=== PATIENT | male | born 1945 | race Caucasian/White ===

== ENCOUNTER 2018-09-02 07:35 | Emergency (ER) | payer MEDICARE, OTHER ==
[~2018-09-02] VITALS: Ht 177.8 cm; Wt 86.2 kg
--- OUTSIDE RECORDS SUMMARY | ~2018-09-02 | XMS | Clinical Summary ---
Demographics + + + | Address | [address] | | | [place] [address] | + + + | Home Phone | | + + + | Preferred Language | Unknown | + + + | Marital Status | | + + + | Anglican Affiliation | NON | + + + | Race | White | + + + | Ethnic Group | Unknown | + + + Author + + + | Organization | Unknown | + + + | Address | Unknown | + + + | Phone | Unavailable | + + + Care Team Providers + +------+ + | Care Research Support Specialist Name | Role | Phone | + +------+ + PP | Unavailable | + +------+ + Source Comments ETHEL is fully live on both [facility] and [facility] InPatient.[facility] Allergies Not on File Current Medications Not on file Active Problems Not on file Social History + +-------+ +--------+------+ | Tobacco Use | Types | Packs/Day | Years | Date | | | | | Used | | + +-------+ +--------+------+ | Never Assessed | | | | | + +-------+ +--------+------+ + + + | Sex Assigned at | Date Recorded | | | | + + + | Not on file | | + + + Plan of Treatment + + + + + | Health Maintenance | Due Date | Last Done | Comments | + + + + + | Pneumococcal (Adult) | | | | | (1 of 2 - PCV13) | 3 | | | + + + + + | Influenza (Flu) | | | | | vaccination (#1) | 8 | | | + + + + + Results Not on filefrom Last 3 Months"
--- OUTSIDE RECORDS SUMMARY | ~2018-09-02 | XMS | Clinical Summary ---
Demographics + + + | Address | [address] | | | [place] [address] | + + + | Home Phone | | + + + | Preferred Language | Unknown | + + + | Marital Status | | + + + | Alevism Affiliation | Unknown | + + + | Race | Unknown | + + + | Ethnic Group | Unknown | + + + Author + + + | Author | [facility] | + + + | Organization | [facility] | + + + | Address | Unknown | + + + | Phone | Unavailable | + + + Support + + +---------+ + | Name | Relationship | Address | Phone | + + +---------+ + | Taina Palomares | ECON | Unknown | | + + +---------+ + | Arianne Palomares | ECON | Unknown | | + + +---------+ + Care Team Providers + +------+ + | Care Equity Research Associate Name | Role | Phone | + +------+ + | Lynda Negron PA-C | PP | Unavailable | + +------+ + Allergies + + + + + + | Active Allergy | Reactions | Severity | Noted | Comments | | | | | Date | | + + + + + + | Lisinopril | Cough | Low | 11/03/19 | | | | | | 18 | | + + + + + + Current Medications + + +--------+---------+------+------+-------+ | Prescription | Sig. | Disp. | Refills | Star | End | Statu | | | | | | t | Date | s | | | | | | Date | | | + + +--------+---------+------+------+-------+ | Cholecalciferol | Take by mouth. 1 PO | | | | | Activ | | (VITAMIN D3) 2000 | daily | | | | | e | | UNITS TABS | | | | | | | + + +--------+---------+------+------+-------+ | losartan (COZAAR) | Take 1 tablet by | 90 | 3 | 07/0 | | Activ | | 50 MG tablet | mouth daily. | tablet | | 5/20 | | e | | | | | | 18 | | | + + +--------+---------+------+------+-------+ | bisoprolol | Take 1 tablet by | 90 | 3 | 09/0 | 09/0 | Activ | | (ZEBETA) 5 MG tablet | mouth nightly. | tablet | | 6/20 | 6/20 | e | | | | | | 18 | 19 | | + + +--------+---------+------+------+-------+ | aspirin 325 MG EC | Take 325 mg by mouth | | | | | Activ | | tablet | daily with | | | | | e | | | breakfast. | | | | | | + + +--------+---------+------+------+-------+ | atorvastatin | Take 1 tablet by | 90 | 3 | | | Activ | | (LIPITOR) 10 MG | mouth nightly. | tablet | | 07/18 | 07/18 | e | | tablet | | | | 18 | 19 | | + + +--------+---------+------+------+-------+ Active Problems + + + | Problem | Noted Date | + + + | Mild carotid artery disease (HCC) | 04/02/2018 | + + + | Mild aortic regurgitation | 01/04/2018 | + + + | History of syncope | 01/04/2018 | + + + | Screening for cardiovascular condition | 08/14/2014 | + + + + + | Last Assessment & Plan: BP now better controlled on Losartan | | 50mg daily and Diltiazem CD 120mg.07/03/3014-Lexiscan Stress MPI- | | done showed no ischemia.06/11/2014-Carotid dopplers- no | | significant disease06/18/2014-Echo- Normal LV systolic function | | with sigmoid septumContinue ASA, Diltiazem, LosartanDiscussed | | diet, exercise, hydration, weight loss, ETOH moderation. | + + + + + | Essential hypertension | 04/18/2013 | + + + + + | Last Assessment & Plan: HTN. Increased due to personal | | stress, father recently passed. Usually good. Continue current | | meds. | + + + + + | Hyperlipidemia | 04/18/2013 | + + + + + | Last Assessment & Plan: Hyperlipidemia. Labs pending. | + + + + + | Chest pain, unspecified | 03/08/2013 | + + + | Mild mitral regurgitation | 03/08/2013 | + + + | Atrial fibrillation (HCC) | 03/08/2013 | + + + + + | Last Assessment & Plan: Paroxymal Atrial fibrillation now in | | sinusHolter 24 hr- no Atrial fibrillation noted in 24 hrCHADSVASc | | of 2- might benefit from oral anticoagulation for STROKE | | prophylaxisIs currently only on ASA- is still reluctant to oral | | anticoagulation at this time says ASA it self is making him bleed | | more than normal.Continue Diltiazem, Losartan 50mg daily His BP | | on presentation today is elevated but repeat is 126/78- I advised | | him jonnathan maintain a BP log at home for next two weeks and | | different times a day and will report me numbersEducated patient | | about tight BP control and mechanisms of Atrial fibrillation and | | management options. | + + Resolved Problems + + + + | Problem | Noted | Resolved | | | Date | Date | + + + + | Dyslipidemia | 11/03/19 | | | | 18 | 8 | + + + + | Syncope and collapse | 03/08/20 | | | | 13 | 8 | + + + + + + | Last Assessment & Plan: Neurocardiogenic syncope. Last | | syncopal episode >2yrs ago. 67-year-old white male, clinically, | | he is doing well, his last syncopal episode was greater than 2 | | years ago. He continues to be active, denies any exertional | | chest discomfort, shortness of breath, lightheadedness. He is | | unaware of any new visual disturbances, dysarthria, dysphasia, | | lateralizing signs or symptoms. Tolerating medical therapy. He | | will continue his medications unchanged. Last seen nearly 2 | | years ago, in the interim he's not had any surgical procedures or | | hospitalizations. His father recently , he is under | | increased stress dealing with the will and the probate. | + + Family History + + +------+ + | Medical History | Relation | Name | Comments | + + +------+ + | Parkinson's disease | Father | | | + + +------+ + | Diabetes type II | Mother | | | + + +------+ + | Heart disease | Mother | | | + + +------+ + + +------+ + + | Relation | Name | Status | Comments | + +------+ + + | Father | | | HTN, parkinson's. Polycythemia vera | | | | (Age | | | | | 95) | | + +------+ + + | Mother | | | [place], diabetes, glaucoma | | | | (Age | | | | | 89) | | + +------+ + + Social History + +-------+ +--------+------+ | Tobacco Use | Types | Packs/Day | Years | Date | | | | | Used | | + +-------+ +--------+------+ | Never Smoker | | | | | + +-------+ +--------+------+ + +---+---+---+ | Smokeless Tobacco: | | | | | Never Used | | | | + +---+---+---+ + + +---------+ + | Alcohol Use | Drinks/We | oz/Week | Comments | | | ek | | | + + +---------+ + | Yes | 4 Cans | 2.4 | occasionally drinks beer, 2-3 times per | | | of beer | | week | + + +---------+ + + + + | Sex Assigned at | Date Recorded | | | | + + + | Not on file | | + + + Last Filed Vital Signs + + + + | Vital Sign | Reading | Time Taken | + + + + | Blood Pressure | 142/60 | 04/02/2018 10:23 AM PST | + + + + | Pulse | 62 | 04/02/2018 10:23 AM PST | + + + + | Temperature | - | - | + + + + | Respiratory Rate | 18 | 04/02/2018 10:23 AM PST | + + + + | Oxygen Saturation | 96% | 04/02/2018 10:23 AM PST | + + + + | Inhaled Oxygen | - | - | | Concentration | | | + + + + | Weight | 88.8 kg (195 lb 13.6 | 04/02/2018 10:23 AM PST | | | oz) | | + + + + | Height | 177.8 cm (5' 10") | 04/02/2018 10:23 AM PST | + + + + | Body Mass Index | 28.1 | 04/02/2018 10:23 AM PST | + + + + Plan of Treatment +--------+---------+ + + + | Date | Type | Specialty | Care Team | Description | +--------+---------+ + + + | 10/04/ | Office | | Genevieve Burroughs | | | 2019 | Visit | | [facility] [address] | | | | | | [address] | | | | | | [place] [address] | | | | | | [phone] | | | | | | | | +--------+---------+ + + + + + + + + | Health Maintenance | Due Date | Last Done | Comments | + + + + + | Vaccine: | | | | | Dtap/Tdap/Td (1 - | 7 | | | | Tdap) | | | | + + + + + | Colon Cancer | | | | | Screening | 8 | | | | (Colonoscopy) | | | | + + + + + | Vaccine: Zoster (1 | | | | | of 2) | 8 | | | + + + + + | Vaccine: | | | | | Pneumococcal 65+ | 3 | | | | Low/Medium Risk (1 | | | | | of 2 - PCV13) | | | | + + + + + | Vaccine: Influenza | | | | | (Season Ended) | 9 | | | + + + + + Results Not on filefrom Last 3 Months Insurance + +--------+ +------+-------+ + | Payer | Benefi | Subscriber | Type | Phone | Address | | | t Plan | ID | | | | | | / | | | | | | | Group | | | | | + +--------+ +------+-------+ + | MEDICARE | MEDICA | [id number] | | | [address] | | | RE | | | | [place] [phone] | | | IP-OP | | | | | + +--------+ +------+-------+ + | [employer] [place] | MUTUAL | [id number] | | | | | | [place] | | | | | | | [place] | | | | | + +--------+ +------+-------+ + + +--------+ +--------+ + + | Guarantor Name | Accoun | Relation to | Date | Phone | Billing Address | | | t Type | Patient | of | | | | | | | | | | + +--------+ +--------+ + + | AZEEM PALOMARES | Person | Self [birth year] | Home: | [address] | | | al/Fam | | 1946 | [phone] | [place] | | | [place] | | | [phone] | [phone] | + +--------+ +--------+ + +
--- OUTSIDE RECORDS SUMMARY | ~2018-09-02 | XMS | Clinical Summary ---
Demographics + + + | Address | [address] | | | [place] [address] | + + + | Home Phone | | + + + | Preferred Language | Unknown | + + + | Marital Status | | + + + | Jewish Affiliation | NON | + + + | Race | White | + + + | Ethnic Group | Unknown | + + + Author + + + | Organization | Unknown | + + + | Address | Unknown | + + + | Phone | Unavailable | + + + Care Team Providers + +------+ + | Care Family Literacy Coordinator Name | Role | Phone | + +------+ + PP | Unavailable | + +------+ + Source Comments ETHEL is fully live on both [facility]ulatory and [facility] InPatient.[facility] Allergies Not on File Current Medications [...]
--- OUTSIDE RECORDS SUMMARY | ~2018-09-02 | XMS | Clinical Summary ---
Demographics + + + | Address | [address] | | | [place] [address] | + + + | Home Phone | | + + + | Preferred Language | Unknown | + + + | Marital Status | | + + + | Episcopalian Affiliation | Unknown | + + + | Race | Unknown | + + + | Ethnic Group | Unknown | + + + Author + + + | Author | [facility] | + + + | Organization | [facility] [employer] [facility] | + + + | Address | Unknown | + + + | Phone | Unavailable | + + + Support + + +---------+ + | Name | Relationship | Address | Phone | + + +---------+ + | Taina Palomares | ECON | Unknown | | + + +---------+ + | Arianen Palomares | ECON | Unknown | | + + +---------+ + Care Team Providers + +------+ + | Care Apprentice Architect Name | Role | Phone | + [...] + + | Mother | | | [place], diabetes, glaucoma | | | | (Age [...] [address] | | | | | | [place] [address] | | | | | | [phone] | | | | | | | [...] +------+-------+ + | MEDICARE | MEDICA | [id number] | | | [address] | | | RE | | | | [place] [phone] | | | IP-OP | | | | | + +--------+ +------+-------+ + | [employer] [place] [employer] [place] | MUTUAL | [id number] | | | | | | [place] | | | | | | | [place] | | | | | + +--------+ [...] | Self | [birth year] | Home: | [address] | | | al/Fam | | 1946 | [phone] | [place] | | | [place] | | | [phone] | + +--------+ +--------+ + +
[2018-09-02] MEDS ORDERED: LOSARTAN POTASS50 MG (07:49)
[2018-09-02] MEDS ORDERED: ASPIRIN325 MG PO (07:49)
[2018-09-02] MEDS ORDERED: BISOPROLOL FUMAR5 MG PO (07:49)
[2018-09-02] MEDS ORDERED: ATORVASTATIN CA10 MG PO (07:49)
[2018-09-02] MEDS ORDERED: VITAMIN D2000 UNIT PO (07:50)
== END 2018-09-02 08:16 | disposition home or self-care (01) ==
LOC: ED 07:35
PROC: 0HQ0XZZ Repair Scalp Skin, External Approach (ICD-10-PCS; principal; 2018-09-02)
DX: S01.01XA Laceration without foreign body of scalp, initial encounter (principal); Z23 Encounter for immunization; W22.8XXA Striking against or struck by other objects, initial encounter
CPT/HCPCS: 12002; 90471; 90715; 99282-25